=== PATIENT | male | born 1975 | race African-American/Black ===

== ENCOUNTER 2017-04-05 14:12 | Emergency (ER) | payer SELFPAY ==
[~2017-04-05] VITALS: Ht 175.3 cm; Wt 82.6 kg
--- NOTE | 2017-04-05 14:12 | NUR ---
BB RA 84 FROM [place] C/O INTERMITTENT CP SINCE AM . PT HALLUCINATING TOOK METH YESTERDAY SINUS TACH IN FIELD, NAD NOTED, VSS, RESP EVEN AND UNLABORED, PT PUT ON MONITOR. WAITING FOR MD BECKETT.
[2017-04-05 14:30] LABS: BASOPHILS # (AUTO) 0.1 /CMM (0.0-0.2); BASOPHILS % (AUTO) 0.8 % (0.0-2.0); EOSINOPHILS % (AUTO) 0.3 % (0.0-6.0); HEMATOCRIT 45 % (39-51); HEMOGLOBIN 15.1 g/dL (13.5-17.5); LYMPHOCYTES # (AUTO) 1.7 /CMM (0.8-4.8); LYMPHOCYTES % (AUTO) 15.2 % (20.0-44.0); MEAN CORPUSCULAR HEMOGLOBIN 32 PG (26.0-33.0); MEAN CORPUSCULAR HGB CONC 33 g/dl (31.0-36.0); MEAN CORPUSCULAR VOLUME 95 fL (80-96); MONOCYTES # (AUTO) 1.2 /CMM (0.1-1.30); MONOCYTES % (AUTO) 10.1 % (2.0-12.0); NEUTROPHILS # (AUTO) 8.4 /CMM (1.8-8.9); NEUTROPHILS % (AUTO) 73.6 % (43.0-81.0); PLATELET COUNT (AUTO) 210 /CMM (150-450); RDW COEFFICIENT OF VARIATION 14.2 (11.5-15.0); RED BLOOD CELL COUNT(AUTO) 4.76 MIL/uL (4.5-6.0); WHITE BLOOD COUNT (AUTO) 11.4 K/uL (4.3-11.0)
[2017-04-05] MEDS ORDERED: LORAZEPAM INJ 2 MG/ML VIAL IVP ONE (14:30)
[2017-04-05] MEDS ORDERED: IV NS 0.9% 1,000 ML BAG IV ONE (14:30)
[2017-04-05] MEDS ORDERED: LORAZEPAM INJ 2 MG/ML VIAL ONE (14:35)
[2017-04-05 14:40] LABS: CALCIUM, SERUM 8.7 mg/dL (8.5-10.1); CARBON DIOXIDE 32 mmol/L (21-32); CHLORIDE 105 mmol/L (98-107); CREATININE 1.4 mg/dL (0.6-1.3); GLUCOSE 122 mg/dL (74-106); POTASSIUM 3.9 mmol/L (3.5-5.1); SODIUM SERUM 142 mmol/L (136-145); UREA NITROGEN, BLOOD 17 mg/dL (7-18)
[2017-04-05 14:41] LABS: ALCOHOL, BLOOD < 3 mg/dL (0-0)
--- NOTE | 2017-04-05 14:49 | NUR ---
EKG AT BS
--- NOTE | 2017-04-05 15:30 | NUR ---
MESSAGE LEFT FOR ART.
--- NOTE | 2017-04-05 16:06 | NUR ---
URINE SENT TO LAB
[2017-04-05 16:09] LABS: APPEARANCE,URINE CLEAR (CLEAR); BILIRUBIN,URINE NEGATIVE (NEGATIVE); BLOOD, URINE 1+ Ery/uL (NEGATIVE); COLOR,URINE YELLOW (YELLOW); KETONES,URINE NEGATIVE (NEGATIVE); LEUKOCYTE ESTERASE ,URINE NEGATIVE (NEGATIVE); NITRITE, URINE NEGATIVE (NEGATIVE); PROTEIN,URINE TRACE mg/dl (NEGATIVE); UGLUCOSE NEGATIVE (NEGATIVE)
[2017-04-05 16:58] LABS: WBC,URINE 0-2 /HPF (0-3)
[2017-04-05 16:59] LABS: BACTERIA,URINE Few /HPF (None Seen); SQUAMOUS EPITHELIAL CELL,UR Few /HPF (None Seen)
[2017-04-05] MEDS ORDERED: OLANZAPINE 5 MG/TAB.RAPDIS PO ONE (17:30)
[2017-04-05] MEDS ORDERED: OLANZAPINE 5 MG TABLET ONE (17:32)
--- NOTE | 2017-04-05 17:42 | NUR ---
Patient is resting comfortably in bed with eyes closed. Easily aroused. VSS
--- NOTE | 2017-04-05 20:18 | NUR ---
Patient is resting comfortably in bed with eyes closed. Easily aroused. VSS
[2017-04-06 05:35] VITALS: BP 118/67
--- NOTE | 2017-04-06 05:44 | NUR ---
IV removed. Catheter intact and site benign. Pressure and 4x4 applied to site. No bleeding noted.Patient given written and verbal discharge instructions. Patient verbalizes understanding of instructions. Patient is ambulatory with steady gait. Refuses offer of care home placement. Patient given list of available shelters in surrounding area. VSS, NAD noted on DC. Denies complaint on DC.
== END 2017-04-06 05:45 | disposition home or self-care (01) ==
LOC: ER 14:13
DX: F23 Brief psychotic disorder (principal); F15.10 Other stimulant abuse, uncomplicated; F20.9 Schizophrenia, unspecified; F17.200 Nicotine dependence, unspecified, uncomplicated
CPT/HCPCS: 36415; 80048; 80305; 81001; 84484; 85025; 93005; 96361; 96374; 99285; A4606; G0480; J2060; J7030; Z7610; 81000-TC

== ENCOUNTER 2020-09-29 00:46 | Emergency (ER) | payer MEDICAID, OTHER ==
[~2020-09-29] VITALS: Ht 177.8 cm; Wt 77.1 kg
[2020-09-29 00:50] VITALS: BP 124/96
[2020-09-29] MEDS ORDERED: PERM60CR6 TP (01:10)
== END 2020-09-29 01:14 | disposition home or self-care (01) ==
LOC: ER 00:48
DX: Z02.89 Encounter for other administrative examinations (principal); B85.2 Pediculosis, unspecified; F20.9 Schizophrenia, unspecified; F10.10 Alcohol abuse, uncomplicated; F17.200 Nicotine dependence, unspecified, uncomplicated; Y90.9 Presence of alcohol in blood, level not specified; Z79.899 Other long term (current) drug therapy